=== PATIENT | male | born 1950 | race Caucasian/White ===

== ENCOUNTER 2018-05-01 13:25 | Observation (INO) ==
--- NOTE | 2018-05-01 14:03 | Emergency Department Note ---
Disposition Clinical Impression: Chest pain Qualifiers: Chest pain type: unspecified Qualified Code(s): R07.9 - Chest pain, unspecified Disposition: Admitted As Inpatient Condition: Good Forms: ED Satisfaction Letter Chest Pain HPI - General Chief Complaint: ED Chest Pain Stated Complaint: CP Time Seen by Provider: 05/01/18 13:43 Source: patient Limitations: no limitations Vital Signs Reviewed: Yes Nursing Notes Reviewed: Yes - History of Present Illness HPI Narrative: Patient with previous history of smoking, prostate cancer with implant radiation therapy presenting to the hospital for evaluation of chest pain. Patient's chest pain started this morning. Describes in the center of his chest lasting for minutes at a time and then resolving. The patient became concerned when he started having left arm numbness. The patient's left arm numbness lasted for several minutes and resolved. The patient states that he has had standard follow-up with primary care physician but has not had previous cardiac workup including no previous stress test. At this time the patient's symptoms completely resolved. The patient's EKG has no specific changes. Further blood work and imaging has been ordered. Severity scale (1-10): 0 - Related Data Home Medications Medication Instructions Recorded Confirmed Tamsulosin [Flomax] 0.4 mg PO DAILY 05/01/18 05/01/18 Allergies Allergy/AdvReac Type Severity Reaction Status Date / Time aspirin Allergy Hives Verified 10/08/17 10:52 ibuprofen Allergy Hives Verified 10/08/17 10:52 Review of Systems: CONSTITUTIONAL: No weight loss, fever, chills, weakness or fatigue. HEENT: Eyes: No visual changes. Ears, Nose, Throat: No hearing loss, difficulty talking or unable to swallow. SKIN: No rash or itching. CARDIOVASCULAR: Chest pain RESPIRATORY: No shortness of breath, cough or sputum. GASTROINTESTINAL: No anorexia, nausea, vomiting or diarrhea. No abdominal pain or blood. GENITOURINARY: No burning on urination or hematuria. NEUROLOGICAL: Paresthesias to the left arm No headache, dizziness, syncope, paralysis, ataxia. No change in bowel or bladder control. MUSCULOSKELETAL: No muscle pain, back pain, joint pain or stiffness. Chest Pain PMH - Past Medical History Medical history: Reports: cancer, other Surgical history: Reports: cholecystectomy, herniorrhaphy, orthopedic, other Psychiatric history: Reports: no psych history - Social History Smoking Status: Former smoker Alcohol use: Reports: occasionally Drug use: Reports: none Physical Exam General: Well appearing, nontoxic, no acute distress Head: Normocephalic Atraumatic Eyes: PERRL, EOMI ENT: Airway patent, no stridor Neck: supple, no meningismus Chest: Lungs clear to auscultation bilateral Cardiac: Regular rate and rhythm, no murmurs, rubs or gallops Abdomen: soft, nontender, nondistended; no guarding, rebound, or tenderness to percussion Musculoskeletal: Calves symmetric, nontender Skin: No rash, normal skin tone Neuro: Alert and Oriented to person, place, and time; No focal deficit, CN 2-12 symmetric and intact; 5 out of 5 muscle strength to the upper lower extremities , sensory intact. - General Limitations: no limitations General appearance: alert, in no apparent distress Course - Reevaluation(s) Reevaluation #1: Patient's workup is negative. Secondary to the patient's age, concerning history, no previous cardiac workup, patient will be admitted for further chest pain rule out. - Consultations Consultation #1: Discussed with hospitalist. Patient accepted for admission. Vital Signs Temperature 97.8 F 05/01/18 13:30 Pulse Rate 63 05/01/18 13:30 Respiratory Rate 18 05/01/18 13:30 Blood Pressure 142/83 05/01/18 13:30 O2 Sat by Pulse Oximetry 94 05/01/18 13:30 Temperature 97.8 F 05/01/18 13:43 Pulse Rate 63 05/01/18 13:43 Respiratory Rate 18 05/01/18 13:43 Blood Pressure 142/83 05/01/18 13:43 O2 Sat by Pulse Oximetry 94 05/01/18 13:43 Oxygen Delivery Oxygen Delivery Room Air Chest Pain - Medical Records Medical records reviewed: Yes I reviewed the patient's medical records. - Lab Data Lab results reviewed: Yes I reviewed the patient's lab results. Result diagrams: 05/01/18 13:58 05/01/18 13:58 Lab Results 05/01/18 05/01/18 Range/Units 13:58 13:58 WBC 6.7 (4.3-11.1) K/mcL RBC 4.70 (4.19-5.50) M/mcL Hgb 15.1 (12.9-16.9) g/dL Hct 44.1 (37.5-50.1) % MCV 93.8 (83.0-100.0) fL MCH 32.1 (28.0-33.3) pg MCHC 34.2 (31.6-35.5) g/dL RDW 12.3 (11.5-14.5) % Plt Count 196 (140-400) K/mcL MPV 11.2 (9.4-12.4) fL Immature Gran % 0.1 (0-4) % Seg Neutrophils % 69.1 % Lymphocytes % 18.4 % Monocytes % 8.8 % Eosinophils % 3.0 % Basophils % 0.6 % Neutrophils # 4.6 (1.6-8.9) K/mcL Lymphocytes # 1.2 (0.6-4.6) K/mcL Monocytes # 0.6 (0.0-1.3) K/mcL Eosinophils # 0.2 (0.0-0.6) K/mcL Basophils # 0.0 (0.0-0.2) K/mcL Sodium 139 (136-145) mEq/L Potassium 4.1 (3.5-5.1) mEq/L Chloride 106 (98-107) mEq/L Carbon Dioxide 29 (23-29) mEq/L BUN 12 (8-23) mg/dL Creatinine 1.21 (0.70-1.30) mg/dL Est GFR ( Amer) > 60 (> 60) Est GFR (Non-Af Amer) 59 L (> 60) BUN/Creatinine Ratio 10 (6-26) Glucose 115 H (70-105) mg/dL Calculated Osmolality 289 (280-300) Calcium 9.4 (8.6-10.3) mg/dL Troponin I < 0.03 (< 0.04) ng/mL - Radiology Data Radiology results reviewed: Yes I reviewed the patient's radiology results. - EKG Data EKG attestation: Yes I reviewed and interpreted this EKG. EKG results narrative: EKG shows sinus rhythm with a heart rate of 62. ID 164. QRS 97. QTC 401. No significant ST elevations or depressions. Poor R-wave progression. Heart Score - Score History: Moderately Suspicious EKG: Normal Age: Greater than 65 Risk Factors: 1-2 risk factors Troponin: Less than normal limit HEART Score Total: 4
[2018-05-01 14:24] LABS: Basophils % 0.6 %; Eosinophils # 0.2 K/mcL (0.0-0.6); Hematocrit 44.1 % (37.5-50.1); Hemoglobin 15.1 g/dL (12.9-16.9); Immature Granulocytes % 0.1 % (0-4); Lymphocytes # 1.2 K/mcL (0.6-4.6); Lymphocytes % 18.4 %; Mean Corpuscular HGB Conc 34.2 g/dL (31.6-35.5); Mean Corpuscular Hemoglobin 32.1 pg (28.0-33.3); Mean Corpuscular Volume 93.8 fL (83.0-100.0); Mean Platelet Volume 11.2 fL (9.4-12.4); Monocytes # 0.6 K/mcL (0.0-1.3); Monocytes % 8.8 %; Neutrophils # 4.6 K/mcL (1.6-8.9); Platelet Count 196 K/mcL (140-400); Red Cell Distribution Width 12.3 % (11.5-14.5); Segmented Neutrophils % 69.1 %
[2018-05-01 14:45] LABS: Troponin I < 0.03 ng/mL (< 0.04)
[2018-05-01 14:46] LABS: BUN/Creatinine Ratio 10 (6-26); Blood Urea Nitrogen 12 mg/dL (8-23); Calcium 9.4 mg/dL (8.6-10.3); Carbon Dioxide 29 mEq/L (23-29); Chloride 106 mEq/L (98-107); Glucose 115 mg/dL (70-105); Osmolality,Calculated 289 (280-300); Potassium 4.1 mEq/L (3.5-5.1); Sodium 139 mEq/L (136-145); eGFR For Non-African Americans 59 (> 60)
[2018-05-01] MEDS ORDERED: Acetaminophen 325 MG TABLET PO PRN (16:27)
[2018-05-01] MEDS ORDERED: Naloxone 0.4 MG/ML INJ IVP PRN (16:27)
[2018-05-01] MEDS ORDERED: traMADol 50 MG TABLET PO PRN (16:27)
[2018-05-01] MEDS ORDERED: Nitroglycerin 0.4 MG TAB.SUBL SL PRN (16:28)
[2018-05-01] MEDS ORDERED: GI Cocktail 40 ML EACH PO ONE (16:28)
--- NOTE | 2018-05-01 16:45 | Internal Med History&Physical ---
<DanyameekkaurPollo davison - Last Filed: 05/01/18 17:21> Date of Encounter: 05/01/18 Time of Encounter: 15:55 Internal Medicine - H&P: HPI Chief complaint: CP Admitted From: Emergency Dept Plans for Post Hospital Care: Home History of present illness: Mr. Wang is a 67 year old male w/PMH of GERD and urinary retention d/t prostate cancer (radiation seed therapy in 2013) presents from the ED w/CC of CP that began this morning at approx. 4 a.m. while asleep. Pt. reports pain as centralized in chest that presented as a soreness that was intermittent. Pt. also reports left arm went numb for 10-12 minutes and became lightheaded. Denies previous occurrence. Pt. also reports heartburn that he takes Zantac PRN for. Alleviating factors: burping. Aggravating factors: none. Denies HTN or HLD hx. Reports smoking 2-2.5 PPD until 2001 when he quit. Pt. denies recent illness , fever, chills, nausea, vomiting, diaphoresis, headache, changes in vision, unusual bleeding, shortness of breath, abdominal pain, diarrhea, constipation, cough, chest congestion, pre-syncope, or syncope. Past Med Surg Social Fam HX - Past Medical History Source: patient, old records reviewed, obtained from family Medical history: cancer (Prostate w/seed therapy in 2013), GERD, other Additional medical history: Prostate cancer. Psychiatric history: no psych history - Past Surgical History Surgical History: cholecystectomy, herniorrhaphy, orthopedic, other Additional surgical history: hip replacement - Social History Smoking Status: Former smoker Packs per day: 2-2.5 PPD - Reports quitting in 2001 Smokeless Tobacco Status: No Alcohol use: occasionally Drug use: none Current living situation: Home, With Family Activity Level: Independent ambulation Recent Out of Country Travel Within the Last 8 Weeks: No Exposure or Possible Exposure to Illness During Travel: No - Family History Mother Race: Family Member Ethnicity: Non- Living Status: Age at : 67 Cause of : Metastatic cancer Hx Family Cardiac Disorders: Yes (Cardiomegaly) Hx Family Cancer: Yes (Liver cancer w/metastases) Father Race: Family Member Ethnicity: Non- Living Status: Age at : 69 Cause of : Colon cancer Hx Family Cancer: Yes (Colon) Brother Race: Family Member Ethnicity: Non- Living Status: Age at : 66 Cause of : Emphysema Hx Family Respiratory Disorders: Yes (Emphysema) Sister Race: Family Member Ethnicity: Non- Living Status: Age at : 54 Cause of : Emphysema Hx Family Respiratory Disorders: Yes (Emphysema) Internal Medicine - H&P: Meds Tamsulosin [Flomax] 0.4 mg PO DAILY 05/01/18 [History] 3 Allergy/AdvReac Type Severity Reaction Status Date / Time aspirin Allergy Hives Verified 10/08/17 10:52 ibuprofen Allergy Hives Verified 10/08/17 10:52 All Systems PM: A 10-system review of systems was performed and is negative for pertinent findings except as documented above in the HPI. - Constitutional Constitutional: no chills, no fever(s), no night sweats - EENT Eyes: no change in vision, no discharge, no pain, no photophobia Ears: no ear discharge, no ear pain, no tinnitus Nose, mouth and throat: no dysphagia, no nasal discharge, no neck pain, no sore throat - Breasts Breasts: as per HPI - Cardiovascular Cardiovascular ROS IM: as per HPI, chest pain, no diaphoresis, no dyspnea, no lightheadedness, no palpitations, no syncope - Respiratory Respiratory: no cough, no dyspnea, no wheezing, no excessive phlegm production - Gastrointestinal Gastrointestinal: heartburn, no abdominal pain, no diarrhea, no hematemesis, no hematochezia, no melena, no nausea, no vomiting - Genitourinary Genitourinary ROS male: as per HPI, difficulty urinating - Musculoskeletal Musculoskeletal ROS IM: no numbness, no tingling - Integumentary Integumentary IM: no rash, no unusual bruising - Neurological Neurological ROS: no confusion, no convulsions, no focal weakness, no numbness, no tingling, no tremor(s) - Psychiatric Psychiatric: as per HPI - Endocrine Endocrine IM: as per HPI - Hematologic/Lymphatic Hematologic/Lymphatic: no easy bruising - Allergic/Immunologic Allergic/Immunologic: as per HPI - Constitutional Vitals: Temp Pulse Resp BP Pulse Ox 97.8 F 63 18 142/83 94 05/01/18 13:43 05/01/18 13:43 05/01/18 13:43 05/01/18 13:43 05/01/18 13:43 General appearance: Present: cooperative, A&O X 3, pleasant, no acute distress, answers questions appropriately Exam: Patient examined at bedside in ED. Patient resting comfortably in bed and denies chest pain symptoms at time of assessment. Patient stated soreness in chest began approximately at 4 AM all sleeping. Alleviated by burping. Patient states he has history of GERD and takes Zantac when necessary. Patient also reports numbness of left arm which lasted approximately 10-12 minutes and subsided. Denies any symptoms on exam. VS: 97.8F temp, HR 63, RR 18, BP 142/83 , SpO2 94% on RA. - Head Head exam: Present: atraumatic, normocephalic - Eye Eye exam: Present: PERRL, conjuntiva pink, sclera anicteric Pupils: Present: PERRL - ENT ENT exam: Present: normal exam - Neck Neck exam general surgery: Present: normal inspection, supple, trachea midline. Absent: lymphadenopathy - Respiratory Respiratory exam: Present: CTAB. Absent: accessory muscle use, rales, rhonchi, wheezes - Cardiovascular Cardiovascular exam: Present: RRR, +S1, +S2. Absent: diastolic murmur, gallop, rubs, systolic murmur - GI/Abdominal GI/Abdominal exam: Present: normal bowel sounds, soft, no peritoneal signs. Absent: distended, tenderness - Rectal Rectal exam: Present: deferred - Additional comments: exam deferred. - Extremities Exam Extremities exam: Present: warm, radial pulses palpable and symmetrical. Absent : calf tenderness, cyanotic, pedal edema - Back Exam Back exam: Present: normal inspection - Neurological Exam Neurological exam: Present: alert, CN II-XII intact, oriented X3, no focal deficits. Absent: pronater drift, facial droop, speech deficit - Psychiatric Psychiatric exam: Present: normal affect, normal mood - Skin Skin exam: Present: dry, intact Internal Med - H&P Results - Labs CBC & Chem 7: 05/01/18 13:58 05/01/18 13:58 Labs: Short CBC 05/01/18 Range/Units 13:58 WBC 6.7 (4.3-11.1) K/mcL Hgb 15.1 (12.9-16.9) g/dL Hct 44.1 (37.5-50.1) % Plt Count 196 (140-400) K/mcL Neutrophils # 4.6 (1.6-8.9) K/mcL BMP 05/01/18 13:58 Sodium 139 Potassium 4.1 Chloride 106 Carbon Dioxide 29 BUN 12 Creatinine 1.21 Glucose 115 H Calcium 9.4 Cardiac Enzymes 05/01/18 Range/Units 13:58 Troponin I < 0.03 (< 0.04) ng/mL - EKG Data EKG shows normal: sinus rhythm - EKG Data Prior EKG available for review: no EKG comments: 05/01/18 16:53 EKG dated 05/01/18 shows sinus rhythm with left axis deviation and abnormal R- wave progression with early transition. - Impressions ITS Impressions Chest X-Ray 05/01/18 13:51 IMPRESSION: COPD. D/ / 05/01/2018 14:39:02 Gregorio Sky MD / mariana Interpreting Provider: Gregorio Sky MD - Diagnostic Studies Chest x-ray Additional comments: Impressions Chest X-Ray 05/01/18 13:51 IMPRESSION: COPD. D/ / 05/01/2018 14:39:02 Gregorio Sky MD / mariana Interpreting Provider: Gregorio Sky MD - Assessment and plan (1) Chest pain Current Visit: Yes Status: Acute Assessment and plan: Acute CP that began this morning at approx. 4 a.m. while asleep. Pt. reports pain as centralized in chest that presented as a soreness that was intermittent. Pt. also reports left arm went numb for 10-12 minutes and became lightheaded. Denies previous occurrence. Pt. also reports heartburn that he takes Zantac PRN for. Denies HTN or HLD hx. Reports smoking 2-2.5 PPD until 2001 when he quit. No recent cardiac w/u. Initial troponin <0.03. Will trend. Pt. given 300 mg. Plavix in ED d/t aspirin allergy. Echocardiogram. NPO at midnight for a.m. nuclear pharm stress test d/t pts. right hip replacement. SL nitro PRN. Will consider adding Cardiology consult if troponins, Echocardiogram , and/or stress test results abnormal. Continuous cardiac telemetry. Supplemental O2 and SpO2 monitoring PRN. Pt. discussed w/Dr. Morrissey who agrees w/ plan of care. Pt. is moderate risk for cardiac event and further morbidity based on chest pain that came on at rest, male gender, borderline BMI, and hx of smoking 2-2.5 PPD. Observation. Qualifiers: Chest pain type: other chest pain Qualified Code(s): R07.89 - Other chest pain; R07.8 - Other chest pain (2) GERD (gastroesophageal reflux disease) Current Visit: Yes Status: Chronic Assessment and plan: Hx of chronic GERD that pt. states he takes Zantac PRN for. GI cocktail ordered. IVP Protonix daily to assess for improvement in chest discomfort sx. Pt. may benefit from GI consult and EGD as OP following discharge. Dr. Aggarwal is pts. surgeon. Qualifiers: Esophagitis presence: esophagitis presence not specified Qualified Code(s) : K21.9 - Gastro-esophageal reflux disease without esophagitis (3) History of prostate cancer Current Visit: Yes Status: Chronic Assessment and plan: Hx of chronic prostate cancer. Reports radioactive seed therapy in 2013 which resulted in difficulty w/urination. Will continue pts. PO Flomax. Monitor I&O. (4) History of total hip replacement Current Visit: Yes Status: Resolved Assessment and plan: Hx of rt. hip replacement. Pt. states he will be unable to complete exercise stress test d/t hip replacement. Qualifiers: Laterality: right Qualified Code(s): Z96.641 - Presence of right artificial hip joint (5) DVT prophylaxis Current Visit: Yes Status: Acute Assessment and plan: SQ heparin 5,000 units Q8HR for DVT prophylaxis. Monitor pt. for signs of bleeding. (6) AMISHA (acute kidney injury) Current Visit: Yes Status: Acute Assessment and plan: Acute kidney injury w/GFR of 59 on admission. Pt. reports that he has forgotten to take his Flomax for several days. Will monitor I&O and f/u labs. - Time Spent With Patient Total time spent is greater than 50% in coordination of care (as documented) at patient's floor/unit and/or counseling patient: 25 - 35 minutes <Juvencio Morrissey - Last Filed: 05/01/18 19:41> Date of Encounter: 05/01/18 Internal Medicine - H&P: HPI History of present illness: Mr. Wang is a 67 year old male All Systems PM: A 10-system review of systems was performed and is negative for pertinent findings except as documented above in the HPI. - Constitutional Vitals: Temp Pulse Resp BP Pulse Ox 97.8 F 57 16 138/83 94 05/01/18 13:43 05/01/18 18:17 05/01/18 18:17 05/01/18 18:17 05/01/18 18:17 Internal Med - H&P Results - Labs CBC & Chem 7: 05/01/18 13:58 05/01/18 13:58 - Assessment and plan (1) History of total hip replacement Current Visit: Yes Status: Resolved Qualifiers: Laterality: right Qualified Code(s): Z96.641 - Presence of right artificial hip joint (2) Chest pain Current Visit: Yes Status: Acute Qualifiers: Chest pain type: other chest pain Qualified Code(s): R07.89 - Other chest pain; R07.8 - Other chest pain (3) GERD (gastroesophageal reflux disease) Current Visit: Yes Status: Chronic Qualifiers: Esophagitis presence: esophagitis presence not specified Qualified Code(s) : K21.9 - Gastro-esophageal reflux disease without esophagitis (4) History of prostate cancer Current Visit: Yes Status: Chronic (5) DVT prophylaxis Current Visit: Yes Status: Acute (6) AMISHA (acute kidney injury) Current Visit: Yes Status: Acute - Time Spent With Patient Total time spent is greater than 50% in coordination of care (as documented) at patient's floor/unit and/or counseling patient: - Attending Attestation Patient seen and examined independently of nurse practitioner. History and physical with assessment and plan reviewed and I agree with plan as above. Patient is a 67-year-old male with history of seizure disorder and alcohol dependence who presented with seizures today. Reportedly the patient had loss of bowel function with seizures. Patient has been off medications for over a year secondary to not having a vehicle and not being able to afford medication. Patient reports his last alcoholic drink was approximately one week prior. Patient was reportedly postictal in the emergency department in mental status was improving. On physical exam the patient is alert and oriented 3 and moving all extremities symmetrically. Patient will be admitted and evaluated by neurology; patient was loaded with IV Keppra in the emergency department will continue Keppra and obtain EEG and MRI of head.
[2018-05-01] MEDS: Pantoprazole 40 MG VIAL IVP SCH (20:08)
[2018-05-01] MEDS: *HR* Heparin 5,000 UNIT/ML VIAL SQ SCH (20:54)
[2018-05-02 01:57] LABS: Basophils % 0.3 %; Eosinophils # 0.2 K/mcL (0.0-0.6); Eosinophils % 4.2 %; Hematocrit 40.6 % (37.5-50.1); Immature Granulocytes % 0.2 % (0-4); Lymphocytes # 1.4 K/mcL (0.6-4.6); Lymphocytes % 23.7 %; Mean Corpuscular HGB Conc 33.3 g/dL (31.6-35.5); Mean Corpuscular Hemoglobin 31.2 pg (28.0-33.3); Mean Corpuscular Volume 93.8 fL (83.0-100.0); Mean Platelet Volume 10.8 fL (9.4-12.4); Monocytes # 0.6 K/mcL (0.0-1.3); Monocytes % 10.2 %; Neutrophils # 3.5 K/mcL (1.6-8.9); Platelet Count 168 K/mcL (140-400); Red Blood Count 4.33 M/mcL (4.19-5.50); Red Cell Distribution Width 12.2 % (11.5-14.5); Segmented Neutrophils % 61.4 %
[2018-05-02 01:58] LABS: Hemoglobin 13.5 g/dL (12.9-16.9)
[2018-05-02 02:26] LABS: Alanine Aminotransferase 7 Units/L (7-52); Albumin 3.6 g/dL (3.5-5.7); Alkaline Phosphatase 58 Units/L (34-104); Aspartate Amino Transferase 10 Units/L (13-39); BUN/Creatinine Ratio 12 (6-26); Bilirubin,Total 0.6 mg/dL (0.3-1.0); Blood Urea Nitrogen 14 mg/dL (8-23); Calcium 8.9 mg/dL (8.6-10.3); Carbon Dioxide 28 mEq/L (23-29); Chloride 106 mEq/L (98-107); Cholesterol 157 mg/dL (< 200); Globulin 1.8 g/dL (2.4-3.5); Glucose 98 mg/dL (70-105); HDL Cholesterol 39 mg/dL (40-59); LDL Cholesterol,Calculated 93 mg/dL (0-99); Magnesium 2.1 mg/dL (1.6-2.6); Osmolality,Calculated 286 (280-300); Potassium 3.8 mEq/L (3.5-5.1); Sodium 138 mEq/L (136-145); Total Protein 5.4 g/dL (6.4-8.9); Triglycerides 125 mg/dL (< 150); eGFR For Non-African Americans > 60 (> 60)
[2018-05-02] MEDS: *HR* Heparin 5,000 UNIT/ML VIAL SQ SCH ×3 (05:41→21:14)
[2018-05-02] MEDS ORDERED: Regadenoson 0.4 MG/5 ML SYRINGE IVP ONE (06:08)
[2018-05-02 08:44] LABS: Estimated Average Glucose 123 mg/dl; Hemoglobin A1C 5.9 %
[2018-05-02] MEDS: Pantoprazole 40 MG VIAL IVP SCH (09:34)
--- NOTE | 2018-05-02 17:22 | Internal Med Progress Note ---
Hospitalist Progress Note - Encounter Date of Encounter: 05/02/18 Time of Encounter: 16:00 - Subjective Interval History: Today patient is alert oriented to wake he denies any chest pain should shortness of breath swelling of the feet or legs denies any muscular skeletal pain is resting comfortably in his bed. He is scheduled for a stress test today and results are pending - Exam Vitals: Temp Pulse Resp BP Pulse Ox 98.0 F 63 15 101/61 93 05/02/18 15:33 05/02/18 15:33 05/02/18 15:33 05/02/18 15:33 05/02/18 15:33 Exam: Stable as above - Assessment and Plan (1) Chest pain Current Visit: Yes Status: Acute Assessment and Plan: Today he continues to complain of 1-2 separate episodes of chest pain. States that they are midsternal points to the left lateral midsternal region with his finger. Does state that he did not report any of this throughout the night to the nursing staff, as they are only lasting 1-2 seconds. Stress test completed today that shows Impression: Pharmacologic stress ECG is negative for ischemia at level of heart rate achieved. Gated EF = 70%. Myocardial perfusion imaging is abnormal. There is a small size moderate intensity fixed apical perfusion defect; and a small, mild, mid inferior fixed perfusion defect. These are consistent with infarct, and attenuation artifact respectively. No ischemia. On further consult with cardiology is pending for abnormal stress test (2) GERD (gastroesophageal reflux disease) Current Visit: Yes Status: Chronic Assessment and Plan: He denies any reflux today We will continue with his Protonix (3) History of prostate cancer Current Visit: Yes Status: Chronic Assessment and Plan: Denies any difficulty with voiding, dysuria, or hesitancy We will continue to receive his Flomax (4) History of total hip replacement Current Visit: Yes Status: Resolved (5) AMISHA (acute kidney injury) Current Visit: Yes Status: Resolved Assessment and Plan: Kidney function has normalized with GFR greater than 16 creatinine is 1.13B UN is 14 (6) DVT prophylaxis Current Visit: Yes Status: Acute Assessment and Plan: Protocol - Time Spent with Patient Total time spent is greater than 50% in coordination of care (as documented) at patient's floor/unit and/or counseling patient: Internal Medicine: Result - Labs CBC & Chem 7: 05/02/18 01:48 05/02/18 01:48 Labs: Short CBC 05/02/18 Range/Units 01:48 WBC 5.8 (4.3-11.1) K/mcL Hgb 13.5 D (12.9-16.9) g/dL Hct 40.6 (37.5-50.1) % Plt Count 168 (140-400) K/mcL Neutrophils # 3.5 (1.6-8.9) K/mcL BMP 05/02/18 01:48 Sodium 138 Potassium 3.8 Chloride 106 Carbon Dioxide 28 BUN 14 Creatinine 1.13 Glucose 98 Calcium 8.9 Cardiac Enzymes 05/01/18 05/02/18 Range/Units 20:09 01:48 Troponin I < 0.03 < 0.03 (< 0.04) ng/mL Liver Function 05/02/18 Range/Units 01:48 Total Bilirubin 0.6 (0.3-1.0) mg/dL AST 10 L (13-39) Units/L ALT 7 (7-52) Units/L Alkaline Phosphatase 58 (34-104) Units/L Albumin 3.6 (3.5-5.7) g/dL Consult Discharge Plan - Plan Referrals: Jennifer Buckley MD [Primary Care Provider] - 05/07/18 10:00 am (1) Chest pain Qualifiers: Chest pain type: precordial pain Qualified Code(s): R07.2 - Precordial pain (2) GERD (gastroesophageal reflux disease) Qualifiers: Esophagitis presence: esophagitis presence not specified Qualified Code(s): K21.9 - Gastro-esophageal reflux disease without esophagitis (4) History of total hip replacement Qualifiers: Laterality: right Qualified Code(s): Z96.641 - Presence of right artificial hip joint
--- NOTE | 2018-05-02 23:35 | Event Note ---
Date of Encounter: 05/02/18 Time of Encounter: 22:40 Alerted that pt. had abnormal stress test results today which showed pharmacologic stress ECG negative for ischemia at level of heart rate achieved. Gated EF = 70%. Myocardial perfusion imaging abnormal. There is a small size moderate intensity fixed apical perfusion defect and a small, mild, mid- inferior fixed perfusion defect. These are consistent with infarct and attenuation artifact respectively. No ischemia. Cardiology consult ordered but not verified w/Cardiology. Cardiology paged and pt. was discussed w/Dr. Hemphill to ensure pt. was placed on Cardiology consult list to be seen. I appreciate the consult and recommendations as always.
--- NOTE | 2018-05-03 00:49 | Electrocardiograph Report ---
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
[2018-05-03 05:42] LABS: Basophils % 0.5 %; Eosinophils # 0.2 K/mcL (0.0-0.6); Eosinophils % 4.1 %; Hematocrit 41.2 % (37.5-50.1); Hemoglobin 13.6 g/dL (12.9-16.9); Immature Granulocytes % 0.2 % (0-4); Lymphocytes # 1.4 K/mcL (0.6-4.6); Lymphocytes % 23.5 %; Mean Corpuscular Hemoglobin 31.1 pg (28.0-33.3); Mean Corpuscular Volume 94.1 fL (83.0-100.0); Mean Platelet Volume 11.2 fL (9.4-12.4); Monocytes # 0.6 K/mcL (0.0-1.3); Monocytes % 9.8 %; Neutrophils # 3.6 K/mcL (1.6-8.9); Platelet Count 175 K/mcL (140-400); Red Blood Count 4.38 M/mcL (4.19-5.50); Red Cell Distribution Width 12.3 % (11.5-14.5); Segmented Neutrophils % 61.9 %
[2018-05-03] MEDS: *HR* Heparin 5,000 UNIT/ML VIAL SQ SCH (06:00)
[2018-05-03 06:07] LABS: Alanine Aminotransferase 7 Units/L (7-52); Albumin 3.7 g/dL (3.5-5.7); Albumin/Globulin Ratio 1.6 (1.1-2.2); Alkaline Phosphatase 59 Units/L (34-104); Aspartate Amino Transferase 10 Units/L (13-39); BUN/Creatinine Ratio 12 (6-26); Bilirubin,Total 0.6 mg/dL (0.3-1.0); Blood Urea Nitrogen 13 mg/dL (8-23); Calcium 9.3 mg/dL (8.6-10.3); Carbon Dioxide 31 mEq/L (23-29); Chloride 106 mEq/L (98-107); Globulin 2.3 g/dL (2.4-3.5); Glucose 105 mg/dL (70-105); Osmolality,Calculated 290 (280-300); Potassium 3.8 mEq/L (3.5-5.1); Sodium 140 mEq/L (136-145); eGFR For Non-African Americans > 60 (> 60)
[2018-05-03 07:08] VITALS: BP 111/61
[2018-05-03] MEDS: Pantoprazole 40 MG VIAL IVP SCH (08:28)
--- NOTE | 2018-05-03 10:57 | Discharge Summary ---
- NOTES TO OUTPATIENT PROVIDER Notes to Outpatient Provider: f/u with PCP within a week. f/u with cardiology within 3-4 weeks. Date of Encounter: 05/03/18 Time of Encounter: 10:55 - Discharge Diagnosis (1) History of total hip replacement Priority: Secondary Status: Resolved Qualifiers: Laterality: right Qualified Code(s): Z96.641 - Presence of right artificial hip joint (2) Chest pain Priority: Primary Status: Acute Qualifiers: Chest pain type: precordial pain Qualified Code(s): R07.2 - Precordial pain (3) GERD (gastroesophageal reflux disease) Priority: Secondary Status: Chronic Qualifiers: Esophagitis presence: esophagitis presence not specified Qualified Code(s) : K21.9 - Gastro-esophageal reflux disease without esophagitis (4) History of prostate cancer Priority: Secondary Status: Chronic (5) DVT prophylaxis Priority: Primary Status: Acute (6) AMISHA (acute kidney injury) Priority: Primary Status: Resolved Hospital course: Mr. Wang is a 67 year old male presented with atypical chest pain symptoms--? GI in etiology. Troponin negative, no ischemic ECG changes present. Stress test finding--negative for ischemia, positive for small area of infarct. No prior CV history reported. Risk factors for CAD: age, hx of tobacco abuse ( quit 2001) TTE shows preserved LVEF with normal wall motion. Cardiology was consulted medical therapy recommended. Ideally, would start on ASA, however has allergy--facial swelling/hives. Pt was started on low dose statin. No BB due to bradycardia (avg HR=60 past 24 hours). Patient was discharged home today, he was instructed to follow up with cardiology within 3- 4 weeks, he will follow-up with PCP within a week. Discharge discussed with: patient, family Time spent discussing smoking cessation with patient: more than 10 minutes - Time Spent with Patient Total time spent providing and/or coordinating discharge services: Greater than 30 minutes - Discharge Medications Prescriptions: Atorvastatin [Lipitor] 20 mg PO HS #30 tablet Home Medications: Tamsulosin [Flomax] 0.4 mg PO DAILY 05/01/18 [History] Atorvastatin [Lipitor] 20 mg PO HS #30 tablet 05/03/18 [Rx] Allergies/Adverse Reactions: 3 Allergy/AdvReac Type Severity Reaction Status Date / Time aspirin Allergy Hives Verified 10/08/17 10:52 ibuprofen Allergy Hives Verified 10/08/17 10:52 Date of admission: 05/01/18 18:28 Primary care physician: Jennifer Buckley MD Anticipated date of discharge: 05/03/18 - Constitutional Vitals: Temp Pulse Resp BP Pulse Ox 98.6 F 59 15 111/61 92 05/03/18 07:07 05/03/18 07:07 05/03/18 07:07 05/03/18 07:07 05/03/18 07:07 General appearance: Present: cooperative, A&O X 3, pleasant, no acute distress, answers questions appropriately Exam: PHYSICAL EXAMINATION: GENERAL APPEARANCE: The patient is alert, oriented and in no acute distress. HEENT: Head is normocephalic. The sinuses are nontender. Pupils are equal and reactive. The nares are patent. Oropharynx clear without lesions. NECK: Supple without lymphadenopathy. HEART: Regular rate and rhythm. LUNGS: No crackles or wheezes are heard. ABDOMEN: Soft, nontender, nondistended with good bowel sounds heard. Inguinal area is normal. EXTREMITIES: Without cyanosis, clubbing or edema. NEUROLOGICAL: Gross nonfocal. SKIN: Warm and dry without any rash. - Patient Status Disposition: Home, Self-Care Condition: Good Functional capacity at discharge: independent ambulation Overall status at discharge: patient is back to baseline - Discharge Instructions Instructions: Simvastatin (By mouth), Chest Pain (DC), Gastroesophageal Reflux Disease (DC) Follow Up With: Cardiology, [place] [Other] ([facility] office will call you with appointment time and day. Please call them if you do not hear anything with in 1 -2 days. ) Jennifer Buckley MD [Primary Care Provider] - 05/07/18 10:00 am Additional Instructions: Follow-up appointments: If there is not an appointment listed below, please call your physician and schedule a follow-up appointment. If you have congestive heart failure and your symptoms return, make an appointment with your physician. Medication List: Carry an up to date list of medications you are taking at all time. We have given you an updated medication list including any new medications that you have been prescribed. Please provide that list to your primary provider Symptoms: If your condition changes or you experience any of the following symptoms, notify your physician immediately: Unusual or worsening pain, fever, persistent nausea and vomiting, bleeding, increase in swelling (especially in your legs), sudden weight gain, extreme dizziness, chest pain, increased drainage or redness from a wound or incision. Go to the emergency department if you experience a problem with breathing. Weights: If you have a history of swelling or shortness of breath, weigh yourself daily and notify your physician if you have a weight gain of two or more pounds in one day or 5 or more pounds in a week. If you experience any of the warning signs for stroke: Sudden numbness or weakness of the face, arm or leg; especially on one side of the body, sudden confusion, trouble speaking or understanding, sudden trouble seeing in one or both eyes, sudden trouble walking, dizziness, loss of balance or coordination, sudden sever headache with no cause; Call 911 or go to the emergency room. Stroke is a medical emergency. Some risk factors for stroke: Age, cigarette smoking, diabetes, excessive alcohol consumption, family history , high blood pressure, overweight, physical inactivity, prior stroke, heart attack, diagnosis of carotid artery stenosis or other artery disease. If you smoke, STOP: Smoking or tobacco use significantly increases your risk of heart and lung disease. Your chance of disease greatly increases if you continue to smoke. For more information, call the [employer] tobacco quit line for smoking cessation QUIT-NOW ( ) Don't forget to get your flu shot! - Diet and Activity Activity: increase activity as tolerated Diet: advance to your usual diet
--- NOTE | 2018-05-03 10:59 | Cardiology Consult Note ---
<Sofia Rivas - Last Filed: 05/03/18 10:54> Date of Encounter: 05/03/18 Time of Encounter: 10:00 Assessment and Plan (1) Abnormal stress test Current Visit: Yes Status: Acute Presented with atypical chest pain symptoms--? GI in etiology. Troponin negative , no ischemic ECG changes present. Low risk stress test finding--negative for ischemia, positive for small area of infarct. No prior CV history reported. Risk factors for CAD: age, hx of tobacco abuse ( quit 2001) TTE shows preserved LVEF with normal wall motion. Discussed with patient, medical therapy recommended. Ideally, would start on ASA , however has allergy--facial swelling/hives. Will start low dose statin. No BB due to bradycardia (avg HR=60 past 24 hours). Recommend close outpatient follow-up with Cardiology in 4-6 weeks, will coordinate appt. If LHC recommended in future, would need ASA desensitization, pt. aware. No further inpatient recommendations, anticipate sign-off once seen by Dr. Falcon. Discussion w patient/family: The assessment and plan as outlined above was discussed with the patient and/or family members who expressed understanding and agreement. All questions were answered. Thank you for involving us in the care of your patient. Please call with any questions. The patient will be discussed and reviewed with Dr. Falcon; changes to be made accordingly. History of Present Illness Consult date: 05/03/18 Requesting physician: Nicole Jones Consult reason: Abnormal stress test Chief complaint: Chest pain History of present illness: Mr. Wang is a 67 year old male with PMHx significant of ETOH abuse and BPH who presented to the ED with complaints of epigastric chest pain that started yesterday morning. He reports discomfort was non-radiating and occurred at rest. He reports discomfort lasted for seconds at a time, but occurred multiple times. He also reports left arm numbness--lasted 10-12 minutes, resolved without intervention which prompted ED evaluation. Troponin negative x4. No ischemic ECG changes were noted. He underwent nuclear stress test which was positive for infarct, negative for ischemia which prompted Cardiology consulted. No prior CV testing at [facility]. Past Med Surg Social Fam HX - Past Medical History Attestation: Yes The following information was validated with the patient. Source: patient Medical history: cancer, GERD, other Additional medical history: Prostate cancer. Psychiatric history: no psych history - Past Surgical History Surgical History: cholecystectomy, herniorrhaphy, orthopedic, other Additional surgical history: hip replacement - Social History Smoking Status: Former smoker Packs per day: 2-2.5 PPD - Reports quitting in 2001 Smokeless Tobacco Status: No Alcohol use: occasionally Drug use: none - Family History Father Race: Family Member Ethnicity: Non- Living Status: Age at : 67 Cause of : Colon cancer Hx Family Cancer: Yes (Colon) Brother Race: Family Member Ethnicity: Non- Living Status: Age at : 66 Cause of : Emphysema Hx Family Respiratory Disorders: Yes (Emphysema) Sister Race: Family Member Ethnicity: Non- Living Status: Age at : 54 Cause of : Emphysema Hx Family Respiratory Disorders: Yes (Emphysema) Mother Race: Family Member Ethnicity: Non- Living Status: Age at : 67 Cause of : Metastatic cancer Hx Family Cardiac Disorders: Yes (Cardiomegaly) Hx Family Respiratory Disorders: No Hx Family Cancer: Yes (Liver cancer w/metastases) Hx Family GI Disorders: No Hx Family Endocrine Disorder: No Hx Family Neuromuscular Disorders: No Hx Family Neurologic Disorders: No Hx Family HEENT Disorders: No Hx Family Autoimmune Disorders: No Medications and Allergies Tamsulosin [Flomax] 0.4 mg PO DAILY 05/01/18 [History] 3 Allergy/AdvReac Type Severity Reaction Status Date / Time aspirin Allergy Hives Verified 10/08/17 10:52 ibuprofen Allergy Hives Verified 10/08/17 10:52 All Systems Review: The remainder of the systems were reviewed and are negative - Cardiovascular Cardiovascular: as per HPI Physical Examination Vital Signs, Last 4 Hours Temp Pulse Resp BP Pulse Ox 05/03/18 07:07 98.6 F 59 15 111/61 92 General: Conversant, No Apparent Distress HEENT: Atraumatic, Normocephaly, Mucus Membranes Moist Neck: No JVD, Normal carotid pulses Cardiac: Reg Rate and Rhythm, Normal S1 and S2, No Murmur Lungs: Normal Breath Sounds, No Wheeze, Rales, Rhonchi Neuro: Alert and responsive, No focal deficits noted Abdomen: Soft, Non-Tender Skin: No rashes noted on visualized skin Musculoskeletal: No Chest Wall Tenderness Extremities: No Clubbing, No Cyanosis, No Edema, Normal Pulses Results 05/03/18 05:10 05/03/18 05:10 Lab Results 05/03/18 05/03/18 05:10 05:10 WBC 5.8 Hgb 13.6 Hct 41.2 Plt Count 175 Sodium 140 Potassium 3.8 Chloride 106 Carbon Dioxide 31 H BUN 13 Creatinine 1.11 Glucose 105 Calcium 9.3 Total Bilirubin 0.6 AST 10 L ALT 7 Alkaline Phosphatase 59 Active Medications Acetaminophen (Tylenol) 650 mg PO Q6H PRN PRN Reason: Mild Pain/Fever Stop: 10/31/18 16:28 Heparin Sodium (Porcine) (Heparin) 5,000 unit SQ Q8HCO LARA Stop: 10/31/18 22:01 Last Admin: 05/03/18 06:00 Dose: 5,000 unit Hydralazine HCl (Hydralazine) 10 mg IVP Q6HR PRN PRN Reason: Hypertension Stop: 10/31/18 16:36 Naloxone HCl (Narcan) 0.4 mg IVP Q2MIN PRN PRN Reason: SEE COMMENTS Stop: 10/31/18 16:28 Nitroglycerin (Nitroglycerin) 0.4 mg SL Q5MIN PRN PRN Reason: Chest Pain Stop: 10/31/18 16:29 Pantoprazole Sodium (Protonix) 40 mg IVP DAILY [facility] Stop: 10/31/18 16:31 Last Admin: 05/03/18 08:28 Dose: 40 mg Tamsulosin HCl (Flomax) 0.4 mg PO DAILY LARA PRN Reason: Protocol Stop: 10/31/18 16:46 Last Admin: 05/03/18 08:28 Dose: 0.4 mg Tramadol HCl (Ultram) 50 mg PO Q6HR PRN PRN Reason: Moderate Pain Stop: 10/31/18 16:28 - Imaging and Cardiology Stress Test: report reviewed Echo: report reviewed Other Results: 12 hour tele: avg HR=60 SR. No significant pause. - EKG Interpretation EKG results cardiology: personally reviewed Consult Discharge Plan - Plan Instructions: Simvastatin (By mouth), Chest Pain (DC), Gastroesophageal Reflux Disease (DC) Additional Instructions: Follow-up appointments: If there is not an appointment listed below, please call your physician and schedule a follow-up appointment. If you have congestive heart failure and your symptoms return, make an appointment with your physician. Medication List: Carry an up to date list of medications you are taking at all time. We have given you an updated medication list including any new medications that you have been prescribed. Please provide that list to your primary provider Symptoms: If your condition changes or you experience any of the following symptoms, notify your physician immediately: Unusual or worsening pain, fever, persistent nausea and vomiting, bleeding, increase in swelling (especially in your legs), sudden weight gain, extreme dizziness, chest pain, increased drainage or redness from a wound or incision. Go to the emergency department if you experience a problem with breathing. Weights: If you have a history of swelling or shortness of breath, weigh yourself daily and notify your physician if you have a weight gain of two or more pounds in one day or 5 or more pounds in a week. If you experience any of the warning signs for stroke: Sudden numbness or weakness of the face, arm or leg; especially on one side of the body, sudden confusion, trouble speaking or understanding, sudden trouble seeing in one or both eyes, sudden trouble walking, dizziness, loss of balance or coordination, sudden sever headache with no cause; Call 911 or go to the emergency room. Stroke is a medical emergency. Some risk factors for stroke: Age, cigarette smoking, diabetes, excessive alcohol consumption, family history , high blood pressure, overweight, physical inactivity, prior stroke, heart attack, diagnosis of carotid artery stenosis or other artery disease. If you smoke, STOP: Smoking or tobacco use significantly increases your risk of heart and lung disease. Your chance of disease greatly increases if you continue to smoke. For more information, call the [place] tobacco quit line for smoking cessation 6 QUIT-NOW ( ) Don't forget to get your flu shot! Referrals: Cardiology, [place] [Other] ([place] [facility] office will call you with appointment time and day. Please call them if you do not hear anything with in 1 -2 days. ) Jennifer Buckley MD [Primary Care Provider] - 05/07/18 10:00 am <Shayna Falcon - Last Filed: 05/03/18 11:26> Date of Encounter: 05/03/18 - Attending Attestation Patient was seen and evaluated independently by me. Findings, assessment and plan were discussed at length with patient, questions answered. Agree with nurse practitioner's documentation. Addition as follows, 67 yo CM ho GERD. P/w intermittent episodes of epigastric dull pain lasting seconds at rest for ca 12 hrs with spontaneous resolution, non-exertional, non- pleuritic, worsened by food intake, some relief by burping, + short lived left arm numbness, no N/V/dyspnea/dizziness. No prior episode. No dynamic ECG change , neg trop, Echo unremarkable, pharm SPECT no ischemia with fixed mild small area apical-inferal perfusion defect equivocal for infarct. VSS, no JVD, CTA, RRR, no abd tenderness, no LE edema A1c 5.9, HDL 39 A: atypical chest pain, GERD, pre-DM, dyslipidemia P: - no further CV w/u inpatient - risk factors modification - recommend GI imaging w/u - if recurrent cp w/ negative GI w/u, cardiology clinic f/u Shayna Falcon MD, PhD Assessment and Plan Discussion w patient/family: The assessment and plan as outlined above was discussed with the patient and/or family members who expressed understanding and agreement. All questions were answered. Thank you for involving us in the care of your patient. Please call with any questions. History of Present Illness History of present illness: Mr. Wang is a 67 year old male All Systems Review: The remainder of the systems were reviewed and are negative Results 05/03/18 05:10 05/03/18 05:10 Lab Results 05/03/18 05/03/18 05:10 05:10 WBC 5.8 Hgb 13.6 Hct 41.2 Plt Count 175 Sodium 140 Potassium 3.8 Chloride 106 Carbon Dioxide 31 H BUN 13 Creatinine 1.11 Glucose 105 Calcium 9.3 Total Bilirubin 0.6 AST 10 L ALT 7 Alkaline Phosphatase 59
== END 2018-05-03 11:36 | disposition home or self-care (01) ==
LOC: 3BNU 13:25 → EMEROOARM 13:25 → 3BNU 19:11
PROVIDERS: ADMIT Internal Medicine; ATTEND Internal Medicine